=== PATIENT | female | born 1980 | race Caucasian/White ===

== ENCOUNTER 2020-09-20 16:32 | Emergency (ER) | payer OTHER ==
--- OUTSIDE RECORDS SUMMARY | 2020-09-20 16:37 | XMS REPORT | Continuity of Care Document ---
:1980 Author Organization [facility] t Address [address] [place] [address] Care Team Providers Name Role Phone Lab, Fam Pob I Attending Clinician Unavailable Problems This patient has no known problems. Allergies, Adverse Reactions, Alerts This patient has no known allergies or adverse reactions. Medications This patient has no known medications. Procedures This patient has no known procedures. Encounters Start End Encounter Admission Attending Care Care Encounter Source Date/Time Date/Time Type Type Clinicians Facility Department ID 2020-04-17 2020-04-17 Laboratory Lab, [facility] [id number] 09:15:02 09:35:02 Only Fam P[facility] I Health [id number] [place] [id number] [facility] [phone] [address] 2020-04-05 2020-04-05 Laboratory Lab, [facility] [id number] 11:56:29 12:16:29 Only Fam [facility] I [facility] [id number] [place] [id number] [facility] [phone] [phone] Results This patient has no known results.
--- NOTE | 2020-09-20 18:26 | RAD REPORT ---
EXAM DESCRIPTION: RAD - Ankle Left 3 View - 09/20/2020 5:38 pm CLINICAL HISTORY: Pain and swelling since September 09, 2020, imaging at outside facility on day of inj ury was apparently negative. COMPARISON: None FINDINGS: No fracture, dislocation or periosteal reaction. No joint effusion seen. No joint space na rrowing. Soft tissue swelling surrounds the ankle joint. No foreign body. IMPRESSION: No acute bone or joint finding. Soft tissue swelling around the left ankle.
--- NOTE | 2020-09-20 18:27 | RAD REPORT ---
EXAM DESCRIPTION: RAD - Tib Fib Left - 09/20/2020 5:48 pm CLINICAL HISTORY: Persistent left leg pain since injury September 09 COMPARISON: No remote comparison imaging. FINDINGS: No fracture is identified. There is no dislocation or periosteal reaction noted. No acute or suspicious bony finding. No air or foreign body in the soft tissues. Mild edema in the subcutaneous fat mid and distal portion of the left leg. IMPRESSION: Negative left tibia & fibula examination for bone or joint abnormality. Mild soft tissue edema.
--- NOTE | 2020-09-20 18:28 | RAD REPORT ---
EXAM DESCRIPTION: RAD - Foot Left 3 View - 09/20/2020 5:48 pm CLINICAL HISTORY: PAIN, persistent foot pain following injury September 09 COMPARISON: No comparisons FINDINGS: No fracture, dislocation or periosteal reaction. No acute or destructive bony process. No air or foreign body in the soft tissues. IMPRESSION: Negative left foot examination.
--- NOTE | 2020-09-20 18:36 | ER ---
Nurse's Notes [facility] Name: Monik Castillo Age: 40 yrs Sex: Female : 1980 Arrival Date: 09/20/2020 Time: 16:34 Bed 14 Private MD: Diagnosis: Sprain of ankle Presentation: 09/20 16:47 Chief complaint: Patient states: Left ankle pain and swelling since 09/09/20. Had x-ray ll1 at [facility] on the day of injury. No fracture seen. Came for new x-ray since her pain/swelling isn't any better. Coronavirus screen: Client denies travel out of the [place] in the last 14 days. At this time, the client does not indicate any symptoms associated with coronavirus-19. Ebola Screen: Patient denies travel to an Ebola-affected area in the 21 days before illness onset. Initial Sepsis Screen: Does the patient meet any 2 criteria? No. Patient's initial sepsis screen is negative. Does the patient have a suspected source of infection? Yes: Bone or joint infection. Risk Assessment: Do you want to hurt yourself or someone else? Patient reports no desire to harm self or others. Onset of symptoms was September 09, 2020. 16:47 Method Of Arrival: Ambulatory ll1 16:47 Acuity: SHAYNA 4 ll1 Historical: - Allergies: 16:49 Codeine; ll1 - PMHx: 16:49 Asthma; ll1 - PSHx: 16:49 tubes tied; ll1 - Immunization history:: Flu vaccine is not up to date. - Social history:: Smoking status: Patient denies any tobacco usage or history of. Screenin:06 Abuse screen: Denies threats or abuse. Nutritional screening: No deficits noted. vg1 Tuberculosis screening: No symptoms or risk factors identified. Fall Risk Fall in past 12 months (25 points). No secondary diagnosis (0 pts). No IV (0 pts). Ambulatory Aid- None/Bed Rest/Nurse Assist (0 pts). Gait- Normal/Bed Rest/Wheelchair (0 pts) Mental Status- Oriented to own ability (0 pts). Total Rosado Fall Scale indicates No Risk (0-24 pts). Assessment: 16:50 General: Appears in no apparent distress. comfortable, Behavior is calm, cooperative. vg1 Pain: Complains of pain in left foot Pain does not radiate. Pain currently is 0 out of 10 on a pain scale. Pain began about a week ago. Was seen at [facility] and had Xrays done. Results were 'sprain'. [facility] told patient if swelling did not go down to go back to the ER. Neuro: Level of Consciousness is awake, alert, obeys commands, Oriented to person, place, time, situation. Cardiovascular: Patient's skin is warm and dry. Pulses are palpable in right dorsalis pedis artery and left dorsalis pedis artery. Respiratory: Airway is patent Respiratory effort is even, unlabored. GI: No signs and/or symptoms were reported involving the gastrointestinal system. : No signs and/or symptoms were reported regarding the genitourinary system. EENT: No signs and/or symptoms were reported regarding the EENT system. Derm: Bruising that is on left foot, left lateral ankle, left medial ankle and dorsum of left foot Also noted on the toes. . Musculoskeletal: Range of motion: limited in left ankle. 18:05 Reassessment: Patient appears in no apparent distress at this time. Patient and/or vg1 family updated on plan of care and expected duration. Pain level reassessed. Patient is alert, oriented x 3, equal unlabored respirations, skin warm/dry/pink. Vital Signs: 16:47 BP 137 / 93; Pulse 78; Resp 16; Temp 98.5; Pulse Ox 99% ; Weight 65.77 kg; Height 5 ft. ll1 1 in. (154.94 cm); Pain 7/10; 16:55 BP 131 / 93; Pulse 70; Resp 14; Pulse Ox 100% on R/A; vg1 18:04 BP 117 / 89; Pulse 72; Resp 16; Pulse Ox 99% on R/A; vg1 16:47 Body Mass Index 27.40 (65.77 kg, 154.94 cm) ll1 ED Course: 16:34 Patient arrived in ED. rg4 16:49 Triage completed. ll1 16:50 Arm band placed on. ll1 16:51 Silvana Orellana FNP-C [facility]. kb 16:51 Elmer Alarcon MD is Attending Physician. kb 16:51 Tory Ward, MANUEL is Primary Nurse. vg1 17:07 Bed in low position. Call light in reach. Side rails up X 1. vg1 17:38 Ankle Left 3 View XRAY In Process Unspecified. EDMS 17:48 Tib Fib Left XRAY In Process Unspecified. EDMS 17:48 Foot Left 3 View XRAY In Process Unspecified. EDMS 18:54 No provider procedures requiring assistance completed. Patient did not have IV access vg1 during this emergency room visit. Administered Medications: No medications were administered Outcome: 18:35 Discharge ordered by . barrie 18:54 Discharged to home ambulatory. vg1 18:54 Condition: stable 18:54 Discharge instructions given to patient, Instructed on discharge instructions, follow up and referral plans. medication usage, Demonstrated understanding of instructions, follow-up care, medications, Prescriptions given X 2. 18:55 Patient left the ED. vg1 Signatures: Dispatcher [employer] Silvana Stokes, DEJON-C DEJON-Trisha Ramires rg4 Tory Ward RN RN vg1 Ivory Corcoran RN RN ll1
--- NOTE | 2020-09-20 18:36 | EDPHYS ---
Physician Documentation [facility] Name: Monik Castillo Age: 40 yrs Sex: Female : 1980 Arrival Date: 09/20/2020 Time: 16:34 Bed 14 Private MD: ED Physician Elmer Alarcon HPI: 09/20 17:43 This 40 yrs old Female presents to ER via Ambulatory with complaints of Foot kb Pain. 17:43 The patient presents with an injury, pain, swelling, tenderness. The complaints affect kb the left ramsay, anterior aspect of left ankle and dorsum of left foot. Context: The problem was sustained outdoors, resulted from falling out of SUV while cleaning it, the patient can fully bear weight, the patient is able to ambulate, Problem is a result from a previous injury: No. Onset: The symptoms/episode began/occurred 1 week(s) ago. Modifying factors: The symptoms are alleviated by nothing. the symptoms are aggravated by movement, weight bearing. Associated signs and symptoms: Pertinent positives: swelling, Pertinent negatives calf tenderness, fever, nausea, numbness, rash, tingling, vomiting, warmth, weakness. Treatment prior to arrival includes: no previous treatment. Severity of symptoms: At their worst the symptoms were moderate, in the emergency department the symptoms are unchanged. The patient has not experienced similar symptoms in the past. The patient has not recently seen a physician. Pt reports pain to left ankle, foot and ramsay that started a week ago after falling out of her SUV while vacuuming. States she had it x-rayed the day of injury and they were negative, she was diagnosed with a sprain. States she was told to have it xrayed again in a week if symptoms didn't improve. . Historical: - Allergies: 16:49 Codeine; ll1 - PMHx: 16:49 Asthma; ll1 - PSHx: 16:49 tubes tied; ll1 - Immunization history:: Flu vaccine is not up to date. - Social history:: Smoking status: Patient denies any tobacco usage or history of. ROS: 17:42 Constitutional: Negative for fever, chills, and weight loss, Cardiovascular: Negative kb for chest pain, palpitations, and edema, Respiratory: Negative for shortness of breath, cough, wheezing, and pleuritic chest pain, Abdomen/GI: Negative for abdominal pain, nausea, vomiting, diarrhea, and constipation, Neuro: Negative for headache, weakness, numbness, tingling, and seizure. 17:42 MS/extremity: Positive for injury or acute deformity, ecchymosis, pain, swelling, tenderness, of the left ramsay, anterior aspect of left ankle and dorsum of left foot. Exam: 17:36 Constitutional: This is a well developed, well nourished patient who is awake, alert, kb and in no acute distress. Head/Face: Normocephalic, atraumatic. Chest/axilla: Normal chest wall appearance and motion. Nontender with no deformity. No lesions are appreciated. Cardiovascular: Regular rate and rhythm with a normal S1 and S2. No gallops, murmurs, or rubs. Normal PMI, no JVD. No pulse deficits. Respiratory: Lungs have equal breath sounds bilaterally, clear to auscultation and percussion. No rales, rhonchi or wheezes noted. No increased work of breathing, no retractions or nasal flaring. Abdomen/GI: Soft, non-tender, with normal bowel sounds. No distension or tympany. No guarding or rebound. No evidence of tenderness throughout. Neuro: Awake and alert, GCS 15, oriented to person, place, time, and situation. Cranial nerves II-XII grossly intact. Motor strength 5/5 in all extremities. Sensory grossly intact. Cerebellar exam normal. Normal gait. 17:36 Musculoskeletal/extremity: Extremities: grossly normal except: noted in the left ramsay, anterior aspect of left ankle and dorsum of left foot: ecchymosis, pain, swelling, tenderness, ROM: intact in all extremities, Circulation is intact in all extremities. Sensation intact. Vital Signs: 16:47 BP 137 / 93; Pulse 78; Resp 16; Temp 98.5; Pulse Ox 99% ; Weight 65.77 kg; Height 5 ft. ll1 1 in. (154.94 cm); Pain 7/10; 16:55 BP 131 / 93; Pulse 70; Resp 14; Pulse Ox 100% on R/A; vg1 18:04 BP 117 / 89; Pulse 72; Resp 16; Pulse Ox 99% on R/A; vg1 16:47 Body Mass Index 27.40 (65.77 kg, 154.94 cm) ll1 MDM: 16:51 Patient medically screened. kb 17:36 Data reviewed: vital signs, nurses notes. Data interpreted: Pulse oximetry: on room air kb is 100 %. Interpretation: normal. 18:18 Counseling: I had a detailed discussion with the patient and/or guardian regarding: the kb historical points, exam findings, and any diagnostic results supporting the discharge/admit diagnosis, radiology results, the need for outpatient follow up, a orthopedic surgeon, to return to the emergency department if symptoms worsen or persist or if there are any questions or concerns that arise at home. 09/20 16:51 Order name: Ankle Left 3 View XRAY; Complete Time: 18:34 kb 09/20 17:29 Order name: Tib Fib Left XRAY; Complete Time: 18:34 kb 09/20 17:29 Order name: Foot Left 3 View XRAY; Complete Time: 18:34 kb Administered Medications: No medications were administered Disposition: 09/20/20 18:35 Discharged to Home. Impression: Sprain of ankle. - Condition is Stable. - Discharge Instructions: Ankle Sprain, [id number]. - Prescriptions for Diclofenac Sodium 75 mg Oral Tablet, Delayed Release (E.C.) - take 1 tablet by ORAL route 2 times per day As needed; 30 tablet. - Medication Reconciliation Form, Thank You Letter, Antibiotic Education, Prescription Opioid Use form. - Follow up: Emergency Department; When: As needed; Reason: Worsening of condition. Follow up: Private Physician; When: 2 - 3 days; Reason: Recheck today's complaints, Continuance of care, Re-evaluation by your physician. Addendum: 09/21/2020 20:10 Co-signature as Attending Physician, Elmer Alarcon MD. m a2 Signatures: Dispatcher [employer] [place] Silvana Orellana, DOG TRAINER-C DOG TRAINER-Elmer Cheung MD MD ma2 Tory Ward, RN RN vg1 Ivory Corcoran RN RN ll1 Corrections: (The following items were deleted from the chart) 09/20 17:46 17:43 The complaints affect the right ramsay, anterior aspect of right ankle and dorsum kb of right foot, kb 18:55 18:35 09/20/2020 18:35 Discharged to Home. Impression: Sprain of ankle. Condition is vg1 Stable. Forms are Medication Reconciliation Form, Thank You Letter, Antibiotic Education, Prescription Opioid Use. Follow up: Emergency Department; When: As needed; Reason: Worsening of condition. Follow up: Private Physician; When: 2 - 3 days; Reason: Recheck today's complaints, Continuance of care, Re-evaluation by your physician. kb
[2020-09-20 19:01] VITALS: TEMP 98.5
[2020-09-20 19:03] VITALS: BP 117/89; O2SAT 99
== END 2020-09-20 18:55 | disposition home or self-care (01) ==
LOC: ER 16:32
DX: S93.402A Sprain of unspecified ligament of left ankle, initial encounter (principal); W17.89XA Other fall from one level to another, initial encounter; Y93.89 Activity, other specified; Y92.89 Other specified places as the place of occurrence of the external cause; Z88.5 Allergy status to narcotic agent
CPT/HCPCS: 99283